=== PATIENT | female | born 1935 | race Caucasian/White ===

== ENCOUNTER 2017-01-18 17:17 | Emergency (ER) | payer OTHER, BC ==
[2017-01-18 19:01] VITALS: BMI 24.2
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
[2017-01-18 19:50] LABS: BASOPHIL 0.5 % (0-2.0); EOSINOPHIL 1.8 % (0-4.5); MCH 32.2 pg (25.7-33.7); MCHC 34.2 g/dl (32.0-36.0); MEAN CELL VOLUME 94.4 fl (80-96); MEAN PLT VOLUME 9.7 fl (7.5-11.1); NEUTROPHILS 77.1 % (42.8-82.8); PLATELET COUNT 147 K/MM3 (134-434); RDW 13.9 % (11.6-15.6); WHITE BLOOD COUNT 6.4 K/mm3 (4.0-10.0)
[2017-01-18 20:03] LABS: INR 0.97 (0.82-1.09)
[2017-01-18 20:05] LABS: ACTIVATED PTT 34.6 SECONDS (26.9-34.4)
[2017-01-18 20:11] VITALS: TEMP 97.1
[2017-01-18 20:32] LABS: ALBUMIN 4.2 g/dl (3.4-5.0); ANION GAP 7 (8-16); BILIRUBIN,TOTAL 0.6 mg/dL (0.2-1.0); CO2 27 mmol/L (21-32); CREATININE 0.7 mg/dL (0.55-1.02); GLUCOSE,RANDOM 84 mg/dL (74-106); SGOT/AST 61 U/L (15-37); SGPT/ALT 44 U/L (12-78); TOT PROT 7.1 g/dl (6.4-8.2)
[2017-01-18 20:33] LABS: ALK PHOS 67 U/L (45-117)
[2017-01-18 23:14] VITALS: BP 154/78; PULSE 70
== END 2017-01-18 23:15 | disposition home or self-care (01) ==
LOC: JER 17:17
DX: S80.02XA Contusion of left knee, initial encounter (principal); S60.222A Contusion of left hand, initial encounter; M25.462 Effusion, left knee; V47.5XXA Car driver injured in collision with fixed or stationary object in traffic accident, initial encounter; Y92.488 Other paved roadways as the place of occurrence of the external cause; Y93.89 Activity, other specified; W22.11XA Striking against or struck by driver side automobile airbag, initial encounter
CPT/HCPCS: 36415; 70450-TC; 71260-TC; 72125-TC; 73130-TC-LT; 73562-TC-LT; 80053; 85025; 85610; 85730; 99284-25